=== PATIENT | male | born 1970 | race American Indian/Alaskan Native ===

== ENCOUNTER 2019-08-27 10:08 | Emergency (ER) | payer BC ==
[2019-08-27 10:14] VITALS: BP 119/81
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
[2019-08-27] MEDS ORDERED: KETOROLAC 30 MG/1 ML INJ IM ONE (11:14)
[2019-08-27] MEDS ORDERED: CYCLOBENZAPRINE 10 MG TAB PO ONE (11:14)
--- NOTE | 2019-08-27 12:04 | XRay Report ---
CERVICAL SPINE, 4 VIEWS INDICATION: neck pain. COMPARISON: None. IMPRESSION: There is straightening of the normal lordosis. Mild to moderate degenerative disc disea se is identified at C4-5 and C5-6. The remaining levels are within normal limits. No acute osseous o r soft tissue abnormality. Signer Name: Huber Garner Jr, MD Signed: 08/27/2019 11:59 AM Workstation Name: [id number]
--- NOTE | 2019-08-27 12:16 | XRay Report ---
LUMBAR SPINE 3 VIEWS INDICATION: back pain COMPARISON: None. FINDINGS: There is no fracture, subluxation, or other acute radiographic abnormality of the lumbar spine. Disc space heights are maintained. Signer Name: Mitchell Shea MD Signed: 08/27/2019 12:12 PM Workstation Name: [id number]
== END 2019-08-27 13:10 | disposition home or self-care (01) ==
LOC: ED 10:08
DX: S16.1XXA Strain of muscle, fascia and tendon at neck level, initial encounter (principal); F17.200 Nicotine dependence, unspecified, uncomplicated; M54.5 Low back pain; Z79.1 Long term (current) use of non-steroidal anti-inflammatories (NSAID); V49.49XA Driver injured in collision with other motor vehicles in traffic accident, initial encounter; Y93.89 Activity, other specified; Y92.488 Other paved roadways as the place of occurrence of the external cause; Y99.8 Other external cause status
CPT/HCPCS: 72040; 72100; 96372; 99283; J1885

== ENCOUNTER 2019-11-01 17:04 | Emergency (ER) | payer BC, OTHER ==
--- NOTE | 2019-11-01 17:11 | Emergency Department Report ---
Blank Doc - Documentation Documentation: 48-year-old male that presents with left hip pain with radiation to left leg. Denies any injuries. This initial assessment/diagnostic orders/clinical plan/treatment(s) is/are subject to change based on patient's health status, clinical progression and re- assessment by fellow clinical providers in the ED. Further treatment and workup at subsequent clinical providers discretion. Patient/guardians urged not to elope from the ED as their condition may be serious if not clinically assessed and managed. Initial orders include: 1- Patient sent to [facility] for further evaluation and treatment 2- xrays
[2019-11-01 17:12] VITALS: BP 116/78
--- NOTE | 2019-11-01 17:40 | XRay Report ---
LEFT HIP 3 VIEW(S) INDICATION / CLINICAL INFORMATION: Left hip pain for one day COMPARISON: None available. FINDINGS: BONES / JOINT(S): No acute fracture or subluxation. No significant arthritis. Incidental note of corral sitional lumbosacral segment with partial lumbarization of S1. SOFT TISSUES: No significant abnormality. ADDITIONAL FINDINGS: None. Signer Name: Renetta Kern MD Signed: 11/01/2019 5:35 PM Workstation Name: [id number]
[2019-11-01] MEDS ORDERED: HYDROcodone/ACETAMINOPHEN 5-325 MG TAB PO ONE (20:57)
[2019-11-01] MEDS ORDERED: KETOROLAC 60 MG/2 ML INJ IM ONE (20:58)
--- NOTE | 2019-11-01 21:32 | Emergency Department Report ---
ED General Adult HPI - General Chief complaint: Extremity Injury, Lower Stated complaint: SEVERE LEFT LEG PAIN Time Seen by Provider: 11/01/19 17:10 Source: patient, family Mode of arrival: Wheelchair Limitations: No Limitations - History of Present Illness Initial comments: 48-year-old -[place] male patient with history of sciatica presents with complaints of left hip pain radiating down his left leg x yesterday. He describes the pain as burning and shooting rates it at 10/10 in severity. He denies any injury, history of cancer, or fever/chills/sweats. Patient states pain worsens with ambulation. He also denies any loss of bladder/bowel control, numbness/tingling/weakness in his limbs, or inability to ambulate. Patient states the pain does feel like his sciatica and his sciatica has only been on the left side in the past. -: Sudden Severity scale (0 -10): 8 - Related Data Previous Rx's Medication Instructions Recorded Last Taken Type Cyclobenzaprine [Flexeril] 10 mg PO QHS PRN #20 tablet 08/27/19 Unknown Rx Ibuprofen [Motrin 800 MG tab] 800 mg PO Q8HR PRN #30 tablet 08/27/19 Unknown Rx Acetaminophen/Codeine [Tylenol 1 tab PO Q6H PRN #6 tab 11/01/19 Unknown Rx /Codeine # 3 tab] Diclofenac Sodium 50 mg PO TID PRN #21 tablet. 11/01/19 Unknown Rx methOCARBAMOL [Robaxin TAB] 1,500 mg PO Q8H PRN #30 tablet 11/01/19 Unknown Rx Allergies Allergy/AdvReac Type Severity Reaction Status Date / Time No Known Allergies Allergy Unverified 08/27/19 10:12 ED Review of Systems ROS: Stated complaint: SEVERE LEFT LEG PAIN Other details as noted in HPI Comment: All other systems reviewed and negative Musculoskeletal: as per HPI ED Past Medical Hx - Past Medical History Previous Medical History?: Yes Additional medical history: Left leg pain, Sciatic pain - Surgical History Past Surgical History?: No - Social History Smoking Status: Current Every Day Smoker Substance Use Type: Alcohol - Medications Home Medications: Home Medications Medication Instructions Recorded Confirmed Last Taken Type Cyclobenzaprine [Flexeril] 10 mg PO QHS PRN #20 tablet 08/27/19 Unknown Rx Ibuprofen [Motrin 800 MG tab] 800 mg PO Q8HR PRN #30 tablet 08/27/19 Unknown Rx Acetaminophen/Codeine [Tylenol 1 tab PO Q6H PRN #6 tab 11/01/19 Unknown Rx /Codeine # 3 tab] Diclofenac Sodium 50 mg PO TID PRN #21 tablet. 11/01/19 Unknown Rx methOCARBAMOL [Robaxin TAB] 1,500 mg PO Q8H PRN #30 tablet 11/01/19 Unknown Rx ED Physical Exam - General Limitations: No Limitations General appearance: alert, in no apparent distress - Head Head exam: Present: atraumatic, normocephalic - Eye Eye exam: Present: normal appearance - Neck Neck exam: Present: normal inspection, full ROM - Respiratory Respiratory exam: Absent: respiratory distress - Cardiovascular Cardiovascular Exam: Present: regular rate, normal rhythm - Extremities Exam Extremities exam: Present: normal inspection, full ROM. Absent: tenderness - Back Exam Back exam: Present: full ROM, tenderness (over left buttock and left lower back). Absent: vertebral tenderness - Neurological Exam Neurological exam: Present: alert, oriented X3, other (positive left straight leg raise test). Absent: normal gait (unable to evaluate due to patient stating too much pain to walk right now), motor sensory deficit - Expanded Neurological Exam Expanded Sensory exam: Upper Extremity Light Touch: Normal, Lower Extremity Light Touch: Normal Motor strength exam: RUE: 5, LUE: 5, RLE: 5, LLE: 5 - Psychiatric Psychiatric exam: Present: normal affect, normal mood - Skin Skin exam: Present: warm, dry, intact, normal color. Absent: rash ED Course Vital Signs 11/01/19 17:11 Temperature 98 F Pulse Rate 112 H Respiratory 20 Rate Blood Pressure 116/78 O2 Sat by Pulse 97 Oximetry ED Medical Decision Making - Radiology Data Radiology results: report reviewed LEFT HIP 3 VIEW(S) INDICATION / CLINICAL INFORMATION: Left hip pain for one day COMPARISON: None available. FINDINGS: BONES / JOINT(S): No acute fracture or subluxation. No significant arthritis. Incidental note of transitional lumbosacral segment with partial lumbarization of S1. SOFT TISSUES: No significant abnormality. ADDITIONAL FINDINGS: None. - Medical Decision Making 48-year-old male patient here with left sided sciatica flare. X-ray is negative for acute abnormalities. Patient has a positive left straight leg raise test on exam. He denies any red flag symptoms. Vitals are stable patient is nontoxic appearing. Patient to discharge home with conservative treatment for sciatica. Recommend follow-up with orthopedics for further evaluation and treatment. Discussed strict return precautions in detail with patient verbalizes understanding. Critical care attestation.: If time is entered above; I have spent that time in minutes in the direct care of this critically ill patient, excluding procedure time. ED Disposition Clinical Impression: Left sided sciatica Disposition: TO HOME OR SELFCARE Is pt being admited?: No Condition: Stable Instructions: Sciatica (ED) Prescriptions: Diclofenac Sodium 50 mg PO TID PRN #21 tablet.dr PRN Reason: pain methOCARBAMOL [Robaxin TAB] 1,500 mg PO Q8H PRN #30 tablet PRN Reason: muscle tightness/spasm Acetaminophen/Codeine [Tylenol /Codeine # 3 tab] 1 tab PO Q6H PRN #6 tab PRN Reason: Pain , Severe (7-10) Referrals: RANDY SHELBY MD [Staff Physician] - 3-5 Days
== END 2019-11-01 22:00 | disposition home or self-care (01) ==
LOC: ED 17:04
DX: M54.32 Sciatica, left side (principal); F17.200 Nicotine dependence, unspecified, uncomplicated; Z79.899 Other long term (current) drug therapy
CPT/HCPCS: 73502; 96372; 99283; J1885